=== PATIENT | female | born 1955 | race Caucasian/White ===

== ENCOUNTER 2017-01-17 15:29 | Emergency (ER) | payer BC ==
[~2017-01-17] VITALS: Ht 149.9 cm; Wt 77.1 kg
[2017-01-17 18:40] LABS: BASO % 1 % (0-3); EOS % 2 % (0-3); HEMATOCRIT 43.7 % (36.0-47.0); HEMOGLOBIN 14.7 g/dL (12.0-15.5); LYMPH % 17 % (24-48); MEAN CORPUSCULAR HEMOGLOBIN 31 pg (25-35); MEAN CORPUSCULAR HGB CONC 34 g/dL (31-37); MEAN CORPUSCULAR VOLUME 91 fL (79-100); MONO % 7 % (0-9); NEUT % 75 % (31-73); PLATELET COUNT 175 x10^3/uL (140-400); RED BLOOD COUNT 4.81 x10^6/uL (3.50-5.40); RED CELL DISTRIBUTION WIDTH 14.6 % (11.5-14.5); WHITE BLOOD COUNT 5.9 x10^3/uL (4.0-11.0)
[2017-01-17 19:11] LABS: BILIRUBIN,URINE NEGATIVE (NEG); GLUCOSE,URINE NEGATIVE (NEG); NITRITE,URINE NEGATIVE (NEG); PH,URINE 5.5; PROTEIN,URINE NEGATIVE (NEG-TRACE); UROBILINOGEN,URINE 0.2 mg/dL (0.2 mg/dL)
[2017-01-17 19:15] LABS: BACTERIA,URINE FEW /HPF (0-FEW); RBC,URINE 0 /HPF (0-2); SQUAMOUS EPITHELIAL CELL,UR MOD /LPF
[2017-01-17 19:16] LABS: CALCIUM 9.4 mg/dL (8.5-10.1); CREATININE 0.7 mg/dL (0.6-1.0); GFR 85.4; POTASSIUM 3.7 mmol/L (3.5-5.1)
--- NOTE | 2017-01-17 19:18 | ED.ADGEN ---
Past Medical History Past Medical History: Hypothyroid Past Surgical History: Appendectomy, Cholecystectomy, Alcohol Use: None Drug Use: None Adult General Chief Complaint Chief Complaint: OTHER COMPLAINTS HPI HPI Patient is a 61 year old woman, presents emergency department with multiple complaints. Patient states that yesterday she was finishing work in the morning , and she "almost lost my voice", states that she felt as though her voice was hoarse, and is difficult to speak, although she did not have any sore throat, rhinorrhea, or cough. Denies any chest pain or shortness breath that time, states that later that morning, she awoke from sleep and felt as though "I just couldn't get a breath", denies any chest pain, or tightness, no wheezing, no tightness in the throat, states that she just could not draw a deep breath, again denies any coughing, any fevers, any chills, any weakness, numbness or tingling, nausea or vomiting. Patient states this lasted for about 15 minutes, states that she then felt as though her throat was very dry, and she tried to take drinks of her Pepsi, states that she felt as though was hard to swallow. She denies any of these symptoms currently, states that she is feeling pretty much back to normal at this time, although "I don't know its way out". Patient smokes a pack and a half to 2 packs of cigarettes daily, denies any alcohol or drug use, denies any similar symptoms previously, hasn't previously had a cardiac or pulmonary evaluation. Denies any swelling extremities, no recent travel or surgery, no history of DVT or PE in herself or family members, does have a strong family history of heart disease and stroke on both sides of her family. Patient has a history of hypothyroidism, and does take Synthroid daily, does not take any other medications. Review of Systems Review of Systems Constitutional: Denies fever or chills. [] Eyes: Denies change in visual acuity. [] HENT: Denies nasal congestion or sore throat. [] Respiratory: Denies cough or shortness of breath. [] Cardiovascular: Denies chest pain or edema. [] GI: Denies abdominal pain, nausea, vomiting, bloody stools or diarrhea. [] : Denies dysuria. [] Musculoskeletal: Denies back pain or joint pain. [] Integument: Denies rash. [] Neurologic: Denies headache, focal weakness or sensory changes. [] Endocrine: Denies polyuria or polydipsia. [] Lymphatic: Denies swollen glands. [] Psychiatric: Denies depression or anxiety. [] Allergies Allergies Allergies Coded Allergies Type Severity Reaction Last Updated Verified No Known Drug Allergies 01/17/17 No Physical Exam Physical Exam Constitutional: Well developed, well nourished, no acute distress, non-toxic appearance. [] HENT: Normocephalic, atraumatic, bilateral external ears normal, oropharynx moist, mildly injected oropharynx, no oral exudates, nose normal. [] Eyes: PERRLA, EOMI, conjunctiva normal, no discharge. [] Neck: Normal range of motion, no tenderness, supple, no stridor. [] Cardiovascular:Heart rate regular rhythm, no murmur, S1, S2, no rubs or gallops. [] Lungs & Thorax: Bilateral breath sounds clear to auscultation [] Abdomen: Bowel sounds normal, soft, no tenderness, no rebound, rigidity, no guarding, no masses, no pulsatile masses. [] Skin: Warm, dry, no erythema, no rash. [] Back: No tenderness, no CVA tenderness. [] Extremities: No tenderness, no cyanosis, no clubbing, ROM intact, no edema. Negative Homans sign.[] Neurologic: Alert and oriented X 3, normal motor function, normal sensory function, no focal deficits noted. [] Psychologic: Affect normal, judgement normal, mood normal. [] Current Patient Data Vital Signs Vital Signs Date Time Temp Pulse Resp B/P (MAP) Pulse Ox O2 Delivery O2 Flow Rate FiO2 01/17/17 20:30 76 16 106/67 (80) 97 Room Air 01/17/17 16:25 97.7 97.7 Lab Values Laboratory Tests Test 01/17/17 18:30 01/17/17 18:45 01/17/17 19:58 White Blood Count 5.9 x10^3/uL (4.0-11.0) Red Blood Count 4.81 x10^6/uL (3.50-5.40) Hemoglobin 14.7 g/dL (12.0-15.5) Hematocrit 43.7 % (36.0-47.0) Mean Corpuscular Volume 91 fL (79-100) Mean Corpuscular Hemoglobin 31 pg (25-35) Mean Corpuscular Hemoglobin Concent 34 g/dL (31-37) Red Cell Distribution Width 14.6 % (11.5-14.5) H Platelet Count 175 x10^3/uL (140-400) Neutrophils (%) (Auto) 75 % (31-73) H Lymphocytes (%) (Auto) 17 % (24-48) L Monocytes (%) (Auto) 7 % (0-9) Eosinophils (%) (Auto) 2 % (0-3) Basophils (%) (Auto) 1 % (0-3) Neutrophils # (Auto) 4.4 x10^3uL (1.8-7.7) Lymphocytes # (Auto) 1.0 x10^3/uL (1.0-4.8) Monocytes # (Auto) 0.4 x10^3/uL (0.0-1.1) Eosinophils # (Auto) 0.1 x10^3/uL (0.0-0.7) Basophils # (Auto) 0.0 x10^3/uL (0.0-0.2) Sodium Level 141 mmol/L (136-145) Potassium Level 3.7 mmol/L (3.5-5.1) Chloride Level 106 mmol/L (98-107) Carbon Dioxide Level 27 mmol/L (21-32) Anion Gap 8 (6-14) Blood Urea Nitrogen 14 mg/dL (7-20) Creatinine 0.7 mg/dL (0.6-1.0) Estimated GFR (Cockcroft-Gault) 85.4 BUN/Creatinine Ratio 20 (6-20) Glucose Level 98 mg/dL (70-99) Calcium Level 9.4 mg/dL (8.5-10.1) Total Bilirubin 0.7 mg/dL (0.2-1.0) Aspartate Amino Transferase (AST) 18 U/L (15-37) Alanine Aminotransferase (ALT) 15 U/L (14-59) Alkaline Phosphatase 128 U/L (46-116) H Troponin I Quantitative < 0.017 ng/mL (0.000-0.055) XP-Zem-A-Type Natriuretic Peptide 41 pg/mL (0-124) Total Protein 7.1 g/dL (6.4-8.2) Albumin 3.8 g/dL (3.4-5.0) Albumin/Globulin Ratio 1.2 (1.0-1.7) Urine Collection Type Unknown Urine Color Yellow Urine Clarity Clear Urine pH 5.5 Urine Specific [place] 1.015 Urine Protein Negative mg/dL (NEG-TRACE) Urine Glucose (UA) Negative mg/dL (NEG) Urine Ketones (Stick) Negative mg/dL (NEG) Urine Blood Trace (NEG) Urine Nitrite Negative (NEG) Urine Bilirubin Negative (NEG) Urine Urobilinogen Dipstick 0.2 mg/dL (0.2 mg/dL) Urine Leukocyte Esterase Trace (NEG) Urine RBC 0 /HPF (0-2) Urine WBC 1-4 /HPF (0-4) Urine Squamous Epithelial Cells Mod /LPF Urine Bacteria Few /HPF (0-FEW) Urine Mucus Mod /LPF POC Troponin I 0.00 ng/ml (<0.08) Laboratory Tests 01/17/17 18:30 Laboratory Tests 01/17/17 18:30 EKG EKG 1958: Sinus rhythm, heart rate 64 beats/minute, left axis deviation, QTC of 417 , [place] 194, QRS of 86, no ST elevations or depressions, no evidence of acute ST abnormalities, aside from axis deviation no abnormalities identified. As interpreted by me. No prior for comparison. EC: Sinus rhythm, left axis deviation, sinus rhythm at 65 bpm, QTC of 469 , [place] 182, QRS of 88, no ST elevations or depressions, aside from left axis deviation, no evidence of other abnormalities. As interpreted by me. No significant changes from prior. Radiology/Procedures Radiology/Procedures Chest x-ray: Two-view: No cardiomegaly, patient with mild hyperinflation of the lungs, but no pneumothorax, no soft tissue or bone abdomen abnormalities identified, no effusions, as interpreted by me. \\ Soft tissue neck: Two-view: Patient with preservation of the soft tissues, no evidence of swelling or other abnormality noted on the soft tissue view. As interpreted by me.[] Course & Med Decision Making Course & Med Decision Making Pertinent Labs and Imaging studies reviewed. (See chart for details) Patient without evidence of stridor or mass on examination, mild injection of the oropharynx noted. Strep swab was negative. Due to patient's complaints of shortness of breath, which resolved, without any symptoms currently, patient did receive ECG, laboratory studies including troponin. X-ray of the soft tissues of the neck also obtained was unremarkable. Laboratory studies reveal a normal troponin, without any other concerning findings. Patient again is not experiencing shortness breath, chest pain or other symptoms currently, noted have mild injected oropharynx stated, without any concerning findings otherwise identified. When I discussed this with her, states that she is ready be discharged home now, she states that she has had several episodes of this shortness of breath upon awaking, I did discuss potential benefits of having a sleep study performed, as patient states that she is ready to be discharged home , but is agreeable to following the HE ART score criteria, for which she has a score of 1, a repeat troponin was negative, repeat ECG does not reveal any concerning findings. I did discuss this with patient, who continues to be asymptomatic at this time, patient states that she will be able to follow-up with her primary care provider for additional evaluation, and is agreeable plan to follow-up with cardiology as well, she denies any symptoms presently, and is eager to be discharged home. We discussed concerning symptoms that prompt return to the ED with which patient did voice understanding and agreement, patient discharged home in stable condition with plan, and precautions as above. Dragon Disclaimer Dragon Disclaimer This electronic medical record was generated, in whole or in part, using a voice recognition dictation system. Departure Impression: Primary Impression: Shortness of breath Disposition: 01 HOME, SELF-CARE Condition: STABLE ISHA US DO Jan 17, 2017 19:18
[2017-01-17 19:22] LABS: ALBUMIN 3.8 g/dL (3.4-5.0); ALBUMIN/GLOBULIN RATIO 1.2 (1.0-1.7); TOTAL BILIRUBIN 0.7 mg/dL (0.2-1.0); TOTAL PROTEIN 7.1 g/dL (6.4-8.2)
[2017-01-17 20:30] VITALS: BP 106/67
--- NOTE | 2017-01-18 08:42 | RAD ---
NECK SOFT TISSUE Clinical Indication: Dyspnea, heart time breathing from throat. Comparison: None. Technique: Frontal and lateral views of the soft tissues of the neck are obtained. Findings: The visualized airway appears grossly patent. Prevertebral soft tissues are within normal limits. Surrounding soft tissues of the neck demonstrate no acute finding. Normal cervical lordosis and alignment is maintained as visualized. Visualized lung apices are clear. IMPRESSION: No acute radiographic finding.
--- NOTE | 2017-01-18 08:43 | RAD ---
CHEST PA LATERAL Clinical Indication: SOB Comparison: None. Technique: Frontal and lateral views of the chest are obtained. Findings: No focal consolidation, pleural effusion or pneumothorax is seen. Minimal linear atelectasis seen in the left lung base. Cardiomediastinal silhouette is within normal limits of size. Visualized osseous structures and overlying soft tissues demonstrate no acute finding. IMPRESSION: No focal consolidation or acute radiographic finding. Minimal left basilar atelectasis.
--- NOTE | 2017-01-18 09:08 | EKG ---
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
[2017-01-18 10:25] LABS: NEGATIVE OBC STREP NEG; POSITIVE OBC STREP POS
--- NOTE | 2017-01-18 12:51 | EKG ---
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
== END 2017-01-17 21:02 | disposition home or self-care (01) ==
LOC: ER 15:29
DX: R06.02 Shortness of breath (principal); R13.10 Dysphagia, unspecified; R49.0 Dysphonia; E03.9 Hypothyroidism, unspecified
CPT/HCPCS: 36415; 70360; 71020; 80053; 81001; 83880; 84484; 85025; 87070; 87086; 87880; 93005; 99285-25

== ENCOUNTER → 2017-03-15 | Outpatient (CLI) | payer BC | END | disposition home or self-care (01) | LOC: RAD 12:59 | DX: M79.671 Pain in right foot (principal); Z98.890 Other specified postprocedural states | CPT/HCPCS: 73630 ==